=== PATIENT | male | born 1970 | race Caucasian/White ===

== ENCOUNTER → 2021-07-15 | Emergency (ER) | payer OTHER ==
[~2021-07-15] VITALS: Ht 175.3 cm; Wt 78.0 kg
[~2021-07-15] MED LIST: ACETAMINOPHEN 325MG TABLET PO ONE; LORAZEPAM 0.5MG TABLET PO ONE; LORAZEPAM 1MG TABLET PO ONE; TRIHEXYPHENIDYL HCL 2 MG TABLET PO NR; TRIHEXYPHENIDYL HCL 5 MG TABLET PO SCH; ZIPRASIDONE HCL 20MG CAPSULE PO STA
[2021-07-15 04:15] LABS: BASOPHILS % 1.3 % (0.0-2.0); EOSINOPHILS % 2.4 % (0.0-5.0); HEMATOCRIT. 45.2 % (42.0-52.0); HEMOGLOBIN. 14.6 g/dL (14.0-18.0); MEAN CORPUSCULAR HEMOGLOBIN 27.5 pg (28.0-32.0); MEAN PLATELET VOLUME 8.2 fl (7.4-10.4); MONOCYTES % 4.8 % (2.0-8.0); NEUTROPHILS % 35.5 % (40.0-76.0); PLATELET 220 x1000/uL (130-400); RED BLOOD CELL COUNT 5.32 mill/uL (4.7-6.1); RED CELL DISTRIBUTION WIDTH 17.5 % (11.6-14.6)
[2021-07-15 04:30] LABS: CHLORIDE 110 mEq/L (98-107)
[2021-07-15 04:34] LABS: ETHANOL BLOOD 269 mg/dL
[2021-07-15 06:54] LABS: CLARITY URINE CLEAR (CLEAR); COLOR URINE YELLOW (YELLOW); KETONES URINE TRACE (NEGATIVE); LEUKOCYTE ESTERASE URINE NEGATIVE (NEGATIVE); NITRITE URINE NEGATIVE (NEGATIVE); OCCULT BLOOD URINE NEGATIVE (NEGATIVE); PROTEIN URINE NEGATIVE (NEGATIVE); SPECIFIC GRAVITY URINE 1.019 (1.005-1.030); UROBILINOGEN URINE 0.2 E.U./dL (0.2-1.0)
[2021-07-15 07:05] LABS: *AMPHETAMINES SCREEN URINE NEGATIVE (NEGATIVE); *BARBITURATES SCREEN URINE NEGATIVE (NEGATIVE); *BENZODIAZEPINES SCREEN URINE NEGATIVE (NEGATIVE); *COCAINE SCREEN URINE NEGATIVE (NEGATIVE)
[2021-07-15 07:06] LABS: CANNABINOID URINE SCREEN NEGATIVE (NEGATIVE); METHADONE URINE SCREEN NEGATIVE (NEGATIVE); OPIATES URINE SCREEN NEGATIVE (NEGATIVE); PHENCYCLIDINE URINE SCREEN NEGATIVE (NEGATIVE)
[2021-07-15] MEDS: TRIHEXYPHENIDYL HCL 5 MG TABLET PO SCH ×2 (10:56→22:28)
[2021-07-15] MEDS: ZIPRASIDONE HCL 20MG CAPSULE PO SCH ×2 (10:56→22:28)
[2021-07-15] MEDS: BUSPIRONE HCL 10MG TABLET PO SCH ×2 (10:56→22:28)
[2021-07-16] MEDS: ZIPRASIDONE HCL 20MG CAPSULE PO SCH ×2 (08:24→20:51)
[2021-07-16] MEDS: BUSPIRONE HCL 10MG TABLET PO SCH ×2 (08:24→20:51)
[2021-07-16] MEDS: TRIHEXYPHENIDYL HCL 5 MG TABLET PO SCH ×2 (08:24→20:51)
[2021-07-17] MEDS: BUSPIRONE HCL 10MG TABLET PO SCH ×2 (09:54→20:29)
[2021-07-17] MEDS: TRIHEXYPHENIDYL HCL 5 MG TABLET PO SCH ×2 (09:55→20:29)
[2021-07-17] MEDS: ZIPRASIDONE HCL 20MG CAPSULE PO SCH ×2 (09:55→20:29)
[2021-07-18] MEDS: ZIPRASIDONE HCL 20MG CAPSULE PO SCH (09:36)
[2021-07-18] MEDS: TRIHEXYPHENIDYL HCL 5 MG TABLET PO SCH (09:36)
[2021-07-18] MEDS: BUSPIRONE HCL 10MG TABLET PO SCH (09:36)
[2021-07-18 16:29] VITALS: BP 129/81
== END ==
LOC: EDBD 03:19 → ER 03:19
DX: F20.9 Schizophrenia, unspecified (principal); R45.851 Suicidal ideations; Z20.822 Contact with and (suspected) exposure to COVID-19
CPT/HCPCS: 36415; 71045; 80053; 80305; 80307; 80320; 80329; 81003; 84484; 85025; 99285; C9803; U0003; U0005; G0480